=== PATIENT | male | born 1940 | race Caucasian/White ===

== ENCOUNTER → 2017-01-19 14:14 | Outpatient (CLI) | payer MEDICARE, BC ==
[2017-01-20 10:18] LABS: ANA REFLEX - DIRECT Negative (Negative); IMMUNOGLOBULIN E 3 IU/mL (0-100)
[2017-01-20 22:09] LABS: CYCLIC CITRULL PEPTIDE IGG/IGA 8 units (0-19)
[2017-01-21 14:47] LABS: ANGIOTENSIN CONVERTING ENZYME 42 U/L (14-82)
[2017-01-24 10:10] LABS: FUNGAL - ASP FLAVUS Negative (Neg:<1:1); FUNGAL - ASP NIGER Negative (Neg:<1:1); FUNGAL - ASPER FUMIGATUS Negative (Neg:<1:1)
[2017-01-24 15:18] LABS: A. FUMIGATUS #1 ABS Negative (Negative); PNEUM - A PULLULANS ABS Negative (Negative); PNEUM - MICROPOLY FAENI ABS Negative (Negative); PNEUM - PIGEON SERUM ABS Negative (Negative); PNEUM - THERMOA VULGARIS #1 Negative (Negative); PNEUM - THERMOACT SACCHARII Negative (Negative)
== END | disposition home or self-care (01) ==
LOC: D.LAB 14:00 → D.RT 01-25 11:00 → D.LAB 01-25 11:00
PROVIDERS: Internal Medicine Pulmonary Disease
DX: J84.9 Interstitial pulmonary disease, unspecified (principal)

== ENCOUNTER → 2017-11-10 08:19 | Outpatient (CLI) | payer MEDICARE, BC | END | disposition home or self-care (01) | LOC: D.RT 08:19 | DX: J44.9 Chronic obstructive pulmonary disease, unspecified (principal) ==